=== PATIENT | female | born 1960 | race Caucasian/White ===

== ENCOUNTER 2023-02-05 05:20 | Inpatient (IN) | payer OTHER ==
[~2023-02-05] VITALS: Ht 152.4 cm; Wt 99.8 kg
[2023-02-05] MEDS ORDERED: CEFAZOLIN SOD 2 GM in D5W 50 ML IV ONE (07:00)
[2023-02-05] MEDS ORDERED: DIPHENHYDRAMINE HCL 25 MG CAPSULE PO PRN (07:15)
[2023-02-05] MEDS ORDERED: LACTULOSE 20 GM/30 ML UDC PO PRN (07:15)
[2023-02-05] MEDS ORDERED: BISACODYL 10 MG/SUPPOSITORY RC PRN (07:15)
[2023-02-05] MEDS ORDERED: METOCLOPRAMIDE HCL 10 MG/2 ML VIAL IVP PRN ×2 (07:15→08:15)
[2023-02-05] MEDS ORDERED: NALOXONE HCL 0.4 MG/ML AMP (NARCAN) IVP PRN ×4 (07:15→08:15)
[2023-02-05] MEDS ORDERED: PHENYLEPHRINE HCL 10 MG/ML VIAL (NEOSYNEPHRINE) ONE (07:17)
[2023-02-05] MEDS ORDERED: KETOROLAC TROMETHAMINE 30 MG VIAL ONE (07:17)
[2023-02-05] MEDS ORDERED: MIDAZOLAM HCL 5 MG/ML VIAL (VERSED) IV ONE (07:17)
[2023-02-05] MEDS ORDERED: BUPIVACAINE /PF 0.25% 30 ML VIAL INJ ONE (07:17)
[2023-02-05] MEDS ORDERED: TRANEXAMIC ACID 1,000 MG/10 ML VIAL ONE (07:17)
[2023-02-05] MEDS ORDERED: ACETAMINOPHEN I.V. 1000 MG /100 ML IVPB PREMIX IV ONE (07:17)
[2023-02-05] MEDS ORDERED: LR 1,000 ML IV.SOLN IV ONE (07:17)
[2023-02-05] MEDS ORDERED: NS 1000 ML IV.SOLN IV ONE (07:17)
[2023-02-05] MEDS ORDERED: NS IRRIG SOLN 1000 ML IR ONE (07:17)
[2023-02-05] MEDS ORDERED: VANCOMYCIN HCL 1000 MG/VIAL IV ONE (07:17)
[2023-02-05] MEDS ORDERED: METF-379 PO (08:00)
[2023-02-05] MEDS ORDERED: MULT-1117 PO (08:00)
[2023-02-05] MEDS ORDERED: LISI-652 PO (08:00)
[2023-02-05] MEDS ORDERED: LIP10 PO (08:00)
[2023-02-05] MEDS ORDERED: HYDROmorphone 1 MG/ML INJ. CARTRIDGE IVP PRN ×5 (08:15→11:00)
[2023-02-05] MEDS ORDERED: DIPHENHYDRAMINE INJ 50 MG/ML VIAL IVP PRN (08:15)
[2023-02-05] MEDS ORDERED: LR 1,000 ML IV SCH (08:15)
[2023-02-05] MEDS ORDERED: ONDANSETRON HCL 4 MG/2 ML VIAL IVP PRN ×2 (08:15→11:45)
[2023-02-05] MEDS ORDERED: MEPERIDINE HCL/PF 25 MG/ML DISP.SYRIN IVP PRN (08:15)
[2023-02-05] MEDS ORDERED: ACETAMINOPHEN I.V. 1000 MG 100 ML IV ONE (08:56)
[2023-02-05] MEDS ORDERED: traMADol HCL HCL 50 MG TABLET (ULTRAM) PO PRN (11:00)
[2023-02-05] MEDS ORDERED: oxyCODONE HCL 5 MG TABLET PO PRN ×2 (11:00)
[2023-02-05] MEDS ORDERED: LORATADINE 10 MG TABLET PO PRN (11:00)
[2023-02-05 11:25] VITALS: BP_SYST 135
[2023-02-05 11:31] VITALS: BP_SYST 151
[2023-02-05 12:00] VITALS: BP_SYST 139
[2023-02-05] MEDS: ceFAZolin SODIUM 2 GM in D5W 50 ML IV SCH ×2 (12:22→21:22)
[2023-02-05] MEDS: KETOROLAC TROMETHAMINE 10 MG TABLET (TORADOL) PO SCH ×2 (14:52→21:20)
[2023-02-05] MEDS: ACETAMINOPHEN 500 MG TABLET PO SCH ×2 (14:52→21:21)
[2023-02-05 16:00] VITALS: BP_SYST 144
[2023-02-05 20:00] VITALS: BP_SYST 143
[2023-02-05] MEDS: SENNOSIDES/DOCUSATE SODIUM 1 TAB TABLET(SENOKOT-S) PO SCH (21:21)
[2023-02-06] MEDS: ceFAZolin SODIUM 2 GM in D5W 50 ML IV SCH (03:45)
[2023-02-06 04:00] VITALS: BP_SYST 117
[2023-02-06] MEDS: ACETAMINOPHEN 500 MG TABLET PO SCH (05:39)
[2023-02-06] MEDS: KETOROLAC TROMETHAMINE 10 MG TABLET (TORADOL) PO SCH (05:40)
[2023-02-06 05:41] LABS: BASOPHILS % (AUTO) 0.3 % (0.0-2.0); EOSINOPHILS % (AUTO) 0.1 % (0.0-4.0); HEMATOCRIT 35.5 % (36-48); HEMOGLOBIN 11.6 g/dL (12.0-16.0); LYMPHOCYTES # (AUTO) 1.3 K/uL (1.0-5.5); LYMPHOCYTES % (AUTO) 10.4 % (20.5-51.5); MEAN CORPUSCULAR HEMOGLOBIN 30 pg (27-31); MEAN CORPUSCULAR HGB CONC 33 % (32-36); MEAN CORPUSCULAR VOLUME 90 fL (79.0-98.0); MONOCYTES # (AUTO) 0.9 K/uL (0.0-1.0); MONOCYTES % (AUTO) 7.8 % (1.7-9.3); NEUTROPHILS # (AUTO) 9.7 K/uL (1.8-7.7); NEUTROPHILS % (AUTO) 81.4 % (40.0-70.0); PLATELET COUNT (AUTO) 248 K/uL (130-430); RED BLOOD CELL COUNT(AUTO) 3.93 MIL/uL (4.2-6.2); RED CELL DISTRIBUTION WIDTH 15.5 % (9.0-15.0)
[2023-02-06 06:49] LABS: ALBUMIN 2.9 g/dL (3.4-4.8); CALCIUM 7.9 mg/dL (8.4-11.0); CREATININE 0.83 mg/dL (0.55-1.30); TOTAL BILIRUBIN 0.5 mg/dL (0.0-1.0)
[2023-02-06 08:53] VITALS: BP_SYST 136
[2023-02-06] MEDS ORDERED: lisinopriL 5 MG TABLET PO SCH (09:00)
[2023-02-06] MEDS ORDERED: ATORVASTATIN 10 MG TABLET PO SCH (09:00)
[2023-02-06] MEDS ORDERED: ASPIRIN 81 MG TAB.CHEW PO SCH (09:00)
[2023-02-06] MEDS ORDERED: MULTIVITAMINS TAB 1 TABLET PO SCH (09:00)
[2023-02-06] MEDS: SENNOSIDES/DOCUSATE SODIUM 1 TAB TABLET(SENOKOT-S) PO SCH (09:33)
[2023-02-06 10:31] VITALS: BP_SYST 132
[2023-02-06] MEDS ORDERED: CELECOXIB 200 MG CAPSULE PO SCH (11:00)
[2023-02-06 11:27] VITALS: BP_SYST 105
[2023-02-06] MEDS ORDERED: ASPI-1393 PO (11:31)
== END 2023-02-06 11:49 | disposition home health service (06) | DRG 470 ==
LOC: SMU 05:20
PROVIDERS: ADMIT Student in an Organized Health Care Education/Training Program; ATTEND Student in an Organized Health Care Education/Training Program
PROC: 0SRC0J9 Replacement of Right Knee Joint with Synthetic Substitute, Cemented, Open Approach (ICD-10-PCS; principal; 2023-02-05 07:26)
DX: M17.11 Unilateral primary osteoarthritis, right knee (principal); E44.0 Moderate protein-calorie malnutrition; Z68.41 Body mass index [BMI] 40.0-44.9, adult
CPT/HCPCS: 36415; 73560-TC; 80053; 82962; 85025; 87081; 88305; 88311; 96379; 97110-GP; 97116-GP; 97163-GP; 97530-GP; C1776; J0131; J0690; J1885; J2250; J2370; J3370; J3490; J7030; J7060; J7120